=== PATIENT | female | born 1995 | race Two or more races ===

== ENCOUNTER 2017-04-13 12:15 | Emergency (ER) | payer BC, MEDICAID ==
[~2017-04-13] VITALS: Ht 167.6 cm; Wt 68.0 kg
[~2017-04-13 12:15] MED LIST: ZOFR4TAB3 PO
[2017-04-13 12:18] VITALS: BP 154/100; PULSE 107; RESP 24; TEMP 98.3; O2SAT 100
[2017-04-13] MEDS ORDERED: IBUPROFEN 800 MG TAB PO ONE (12:45)
--- NOTE | 2017-04-13 12:54 | PD ---
HPI Chief Complaint: Musculoskeletal Complaint Time Seen by Provider: 12:40 Travel History International Travel<30 days: No Contact w/Intl Traveler<30days: No Traveled to known affect area: No History of Present Illness HPI 20-year-old female presents to the emergency Department with complaint of right ankle and foot pain after tripping over something in the grass and falling over today. She denies hitting her head or loss of consciousness. Says she fell on the grass. Denies neck pain or back pain. Reports paresthesias to her right toes; denies loss of sensation. Has not been ambulatory on the affected extremity. Has not taken any medications or tried any treatments to alleviate her symptoms. No known allergies. Has no other medical complaints. No other modifying factors or associated signs and symptoms. PFSH Past Medical History Medical History: Denies Significant Hx Developmental Delay: No Diminished Hearing: No Reproductive: Yes (IRREGULAR PERIODS) Immunizations Current: Yes Tetanus Vaccination: Unknown Influenza Vaccination: No ?: Not : 0 Para: 0 Miscarriage: 0 : 0 Past Surgical History Section: Yes (x 2) Gynecologic Surgery: Yes Other Surgery: Yes (DENTAL) Social History Alcohol Use: No Tobacco Use: No Substance Use: No (denied) Allergies-Medications (Allergen,Severity, Reaction): Coded Allergies: No Known Allergies (Verified , 04/13/17) Reported Meds & Prescriptions Reported Meds & Active Scripts Active Ibuprofen 800 Mg Tab 800 Mg PO Q6HR PRN Review of Systems Except as stated in HPI: all other systems reviewed are Neg Physical Exam Narrative GENERAL: Well-nourished, well-developed female patient, in no acute distress SKIN: Warm and dry. HEAD: Atraumatic. Normocephalic. EYES: Pupils equal and round. No scleral icterus. No injection or drainage. ENT: Mucosa pink and moist. Airway patent. NECK: Trachea midline. CARDIOVASCULAR: Regular rate. RESPIRATORY: No accessory muscle use. GASTROINTESTINAL: Flat. MUSCULOSKELETAL: Right ankle and dorsal aspect of the foot are mildly edematous ; with point tenderness on palpation to the mid foot zone, lateral and medial malleolar zone's; without erythema, ecchymosis; no obvious deformities. Right lower extremity is supple and non-tense with 2+ pedal pulses and sensory intact. No obvious deformities. No clubbing. No cyanosis. No edema. NEUROLOGICAL: Awake and alert. Oriented 3. No obvious cranial nerve deficits. Motor grossly within normal limits. Normal speech. PSYCHIATRIC: Appropriate mood and affect; insight and judgment normal. Data Data Last Documented VS Vital Signs Date Time Temp Pulse Resp B/P Pulse Ox O2 Delivery O2 Flow Rate FiO2 04/13/17 12:18 98.3 107 24 154/100 100 Room Air Orders Ankle, Complete ([id number]) (04/13/17 12:31) Foot, Complete ([id number]) (04/13/17 12:31) Ice/Cold Pack (04/13/17 12:31) Ibuprofen (Motrin) (04/13/17 12:45) Crutches (04/13/17 13:08) MDM Medical Decision Making Medical Screen Exam Complete: Yes Emergency Medical Condition: Yes Medical Record Reviewed: Yes Differential Diagnosis Fracture, sprain, dislocation Narrative Course 21-year-old female with right foot and ankle injury. Ibuprofen ordered. Right foot and ankle x-ray ordered. 1348: Right ankle and foot x-rays with no acute findings. Eduar bandage and ankle stirrup splint provided for support. Crutches provided for support. Ibuprofen prescribed for home. Instructed patient to follow up if symptoms persist greater than 7-10 days. Patient verbalizes understanding and agreement with treatment plan. Patient is medically cleared and stable for discharge. Discussed reasons to return to the emergency department. Instructed patient to follow up with primary care provider. Patient agrees with treatment plan. The patients vital signs are stable and the patient is stable for outpatient follow- up and treatment. Patient discharged home, stable and in no acute distress. Diagnosis Primary Impression: Right ankle sprain Qualified Code: S93.401A - Sprain of right ankle, unspecified ligament, initial encounter Additional Impression: Right foot sprain Qualified Code: S93.601A - Right foot sprain, initial encounter Referrals: Primary Care Physician Patient Instructions: Ankle Sprain (ED), Ankle Sprain Exercises (GEN), Ankle Stirrup Splint (ED), Crutch Instructions (ED), Foot Sprain (ED), General Instructions Departure Forms: Tests/Procedures, Work Release Enter return to work date: April 20, 2017 Additional Instructions: Tylenol/ibuprofen every 6 hours as directed and as needed for pain Rest, ice, compress, and elevate extremity to decrease pain and inflammation Ankle Brace for support Crutches for support Avoid aggravating activity; increase activity as tolerated Follow-up with primary care provider Follow-up with orthopedic or podiatry if symptoms persist greater than 7-10 days Return to the emergency department immediately with worsening symptoms Med/Other Pt SpecificInfo: Prescription(s) given Scripts Ibuprofen 800 Mg [id number] Mg PO Q6HR PRN (PAIN) #30 TAB Ref 0 Prov:Randa Denise 04/13/17 Disposition: 01 DISCHARGE HOME Condition: Stable Randa Denise April 13, 2017 12:54
[2017-04-13] MEDS ORDERED: IBUP800T23 PO (12:58)
--- NOTE | 2017-04-13 13:44 | RADRPT ---
EXAM DATE/TIME: 04/13/2017 13:11 [facility] COMPARISON: No previous studies available for comparison. INDICATIONS : Fell this morning, pain entire right foot and ankle MEDICAL HISTORY : None. SURGICAL HISTORY : None. ENCOUNTER: Initial ACUITY: 1 day PAIN SCORE: 10/10 LOCATION: Right ankle FINDINGS: Three view exam was performed of the right ankle. The bony structures are in normal alignment. No e vidence of fracture, dislocation, or soft tissue swelling. The ankle mortise is intact. No radiopaq ue foreign bodies are seen. Bony mineralization is normal. Tiny heel spur on the calcaneus. CONCLUSION: No acute fracture joint dislocation. Vinicio Mancini MD on April 13, 2017 at 13:42 Board Certified Radiologist. This report was verified electronically.
--- NOTE | 2017-04-13 13:44 | RADRPT ---
EXAM DATE/TIME: 04/13/2017 13:08 [facility] COMPARISON: No previous studies available for comparison. INDICATIONS : Fell this morning, pain entire right foot and ankle MEDICAL HISTORY : None. SURGICAL HISTORY : None. ENCOUNTER: Initial ACUITY: 1 day PAIN SCORE: 10/10 LOCATION: Right foot FINDINGS: Three view examination of the right foot demonstrates no soft tissue swelling, dislocation, or fractu re. The tarsal bones appear intact. The interphalangeal and metatarsophalangeal joints are intact. The calcaneus is intact. Bony mineralization is normal. CONCLUSION: No acute fracture or joint dislocation. Vinicio Mancini MD on April 13, 2017 at 13:41 Board Certified Radiologist. This report was verified electronically.
[2017-04-13 13:54] VITALS: BP 130/80; PULSE 88; RESP 20; O2SAT 99
== END 2017-04-13 14:00 | disposition home or self-care (01) ==
LOC: NEPK 12:15
DX: S93.401A Sprain of unspecified ligament of right ankle, initial encounter (principal); S93.601A Unspecified sprain of right foot, initial encounter; W01.0XXA Fall on same level from slipping, tripping and stumbling without subsequent striking against object, initial encounter; Y92.007 Garden or yard of unspecified non-institutional (private) residence as the place of occurrence of the external cause
CPT/HCPCS: 73610; 73630; 99283; E0113